=== PATIENT | female | born 1990 | race Caucasian/White ===

== ENCOUNTER 2020-03-18 09:54 | Emergency (ER) | payer OTHER ==
[~2020-03-18] VITALS: Ht 129.5 cm; Wt 49.9 kg
[2020-03-18] MEDS ORDERED: NORCO 5-325 TA1 EAC2 PO (14:47)
[2020-03-18] MEDS ORDERED: FLEXERIL PO (14:47)
[2020-03-18 17:05] VITALS: BP 126/93
== END 2020-03-18 17:06 | disposition home or self-care (01) ==
LOC: M.ERS 09:54
DX: S43.005A Unspecified dislocation of left shoulder joint, initial encounter (principal); W18.39XA Other fall on same level, initial encounter; Y93.89 Activity, other specified; Y92.89 Other specified places as the place of occurrence of the external cause; Y99.8 Other external cause status